=== PATIENT | female | born 1975 | race Caucasian/White ===

== ENCOUNTER 2017-11-14 09:54 | Emergency (ER) | payer MEDICAID ==
[~2017-11-14] VITALS: Ht 172.7 cm; Wt 59.1 kg
[2017-11-14 10:13] VITALS: Ht 172.7 cm; Wt 59.1 kg
[2017-11-14] MEDS ORDERED: VOLTAREN75 MG PO (10:47)
[2017-11-14] MEDS ORDERED: VIBRAMYCIN 100100 MG PO (10:47)
[2017-11-14 12:07] VITALS: BP 123/93
== END 2017-11-14 12:10 | disposition home or self-care (01) ==
LOC: D.ER 09:54
DX: L03.211 Cellulitis of face (principal); J01.90 Acute sinusitis, unspecified; J06.9 Acute upper respiratory infection, unspecified; J02.9 Acute pharyngitis, unspecified; H57.13 Ocular pain, bilateral